=== PATIENT | male | born 1995 | race Caucasian/White ===

== ENCOUNTER 2018-10-29 23:14 | Emergency (ER) | payer MEDICAID, OTHER ==
[~2018-10-29] VITALS: Ht 160 cm; Wt 67.3 kg
[2018-10-29 23:23] VITALS: BP 123/64; PULSE 88; RESP 16; Ht 160 cm; Wt 67.3 kg
--- NOTE | 2018-10-30 00:44 | ERD ---
ER Documentation Chief Complaint Chief Complaint pt reports blood in urine since yesterday HPI 23-year-old male with no significant past medical history presenting to the emergency department with complaints of intermittent hematuria for 1 month. He states he has had approximately 3 episodes in the past 1 month. He denies any dysuria. He denies any flank pain, abdominal pain, fevers, chills, nausea, vomiting, diarrhea. ROS All systems reviewed and are negative except as per history of present illness. Allergies Allergies: Coded Allergies: No Known Allergy (Unverified , 10/29/18) PMhx/Soc Medical and Surgical Hx: pt denies Medical Hx, pt denies Surgical Hx Hx Alcohol Use: No Hx Substance Use: No Hx Tobacco Use: No Smoking Status: Never smoker FmHx Family History: No diabetes Physical Exam Vitals Vital Signs Date Temp Pulse Resp B/P (MAP) Pulse Ox O2 O2 Flow FiO2 Time Delivery Rate 10/29/18 97.3 88 16 123/64 100 23:23 (83) Physical Exam Const: No acute distress Head: Atraumatic Eyes: Normal Conjunctiva ENT: Normal External Ears, Nose and Mouth. Neck: Full range of motion. No meningismus. Resp: Clear to auscultation bilaterally Cardio: Regular rate and rhythm, no murmurs Abd: Soft, non tender, non distended. Normal bowel sounds Skin: No petechiae or rashes Back: No midline or flank tenderness Ext: No cyanosis, or edema Neur: Awake and alert Psych: Normal Mood and Affect Result Diagram: 10/30/18 0056 10/30/18 0056 Results 24 hrs Laboratory Tests Test 10/30/18 00:56 10/30/18 01:08 White Blood Count 10.1 10^3/ul Red Blood Count 4.89 10^6/ul Hemoglobin 15.0 g/dl Hematocrit 44.0 % Mean Corpuscular Volume 90.0 fl Mean Corpuscular Hemoglobin 30.7 pg Mean Corpuscular Hemoglobin Concent 34.1 g/dl Red Cell Distribution Width 12.5 % Platelet Count 183 10^3/UL Mean Platelet Volume 10.8 fl Immature Granulocytes % 0.400 % Neutrophils % 74.0 % Lymphocytes % 16.9 % Monocytes % 6.7 % Eosinophils % 1.4 % Basophils % 0.6 % Nucleated Red Blood Cells % 0.0 /100WBC Immature Granulocytes # 0.040 10^3/ul Neutrophils # 7.5 10^3/ul Lymphocytes # 1.7 10^3/ul Monocytes # 0.7 10^3/ul Eosinophils # 0.1 10^3/ul Basophils # 0.1 10^3/ul Nucleated Red Blood Cells # 0.0 10^3/ul Sodium Level 142 mmol/L Potassium Level 4.2 mmol/L Chloride Level 106 mmol/L Carbon Dioxide Level 26 mmol/L Anion Gap 10 Blood Urea Nitrogen 18 mg/dl Creatinine 0.76 mg/dl Est Glomerular Filtrat Rate mL/min > 60 mL/min Glucose Level 92 mg/dl Calcium Level 9.7 mg/dl Total Bilirubin 0.6 mg/dl Direct Bilirubin 0.00 mg/dl Indirect Bilirubin 0.6 mg/dl Aspartate Amino Transf (AST/SGOT) 42 IU/L Alanine Aminotransferase (ALT/SGPT) 41 IU/L Alkaline Phosphatase 118 IU/L Total Protein 7.9 g/dl Albumin 4.4 g/dl Globulin 3.50 g/dl Albumin/Globulin Ratio 1.25 Bedside Urine pH (LAB) 5.5 Bedside Urine Protein (LAB) Negative Bedside Urine Glucose (UA) Negative Bedside Urine Ketones (LAB) Negative Bedside Urine Blood Negative Bedside Urine Nitrite (LAB) Negative Bedside Urine Leukocyte Esterase (L Negative [place] [id number] Radiology Main Line: [phone] DIAGNOSTIC IMAGING REPORT Patient: HAJA RIDDLE : 1995 Age: 23 Sex: M MR #: [id number] DOS: 10/30/18 0000 Ordering MD: POLLO HUFF PA-C Location: [facility] Room/Bed: PROCEDURE: RENAL ULTRASOUND CLINICAL INDICATION: Hematuria. TECHNIQUE: Sonographic imaging of the kidneys and retroperitoneum was performed with grayscale and color Doppler techniques. COMPARISON: None. FINDINGS: RIGHT KIDNEY: Measures 9.8 cm in length without appreciated abnormality. LEFT KIDNEY: Measures 10.0 cm in length without appreciated abnormality. BLADDER: Unremarkable. IMPRESSION: 1. Unremarkable renal ultrasound. RPTAT:HGST Maria T Moon Physician Date Time Electronically viewed and signed by Maria T Moon Physician on 10/30/2018 02:22 GT/ CC: POLLO HUFF PA-C [id number] Procedures/MDM 23-year-old male presenting to the emergency department with complaints of intermittent hematuria for the past 1 month with unclear etiology. CBC and urinalysis and CMP were within normal limits. Renal ultrasound showed no significant acute abnormalities. The full report interpreted by the radiologist may be viewed above. Low suspicion for pyelonephritis, acute surgical abdomen, sepsis, or other emergencies. Patient was advised he must follow-up with urologist as an outpatient. He was advised to return to the department immediately for any new or worsening or concerning symptoms. He was in agreement with the diagnosis, plan, need for follow-up, return precautions. Departure Diagnosis: Primary Impression: Hematuria Condition: Fair POLLO HUFF PA-C October 30, 2018 00:44
== END 2018-10-30 02:38 | disposition home or self-care (01) ==
LOC: FTE 23:14
DX: R31.9 Hematuria, unspecified (principal)
CPT/HCPCS: 76775; 80053; 81003; 85025; Z7502

== ENCOUNTER 2019-01-26 19:05 | Emergency (ER) | payer MEDICAID ==
[~2019-01-26] VITALS: Ht 165.1 cm; Wt 67.3 kg
[2019-01-26 19:07] VITALS: BP 135/86; PULSE 79; RESP 16; Ht 165.1 cm; Wt 67.3 kg
== END 2019-01-26 20:42 | disposition home or self-care (01) ==
LOC: FTE 19:05
DX: R31.9 Hematuria, unspecified (principal)
CPT/HCPCS: 36415; 74176; 80053; 81001; 85025; Z7502